=== PATIENT | female | born 1980 | race Caucasian/White ===

== ENCOUNTER → 2020-11-21 18:20 | Outpatient (CLI) | payer BC, SELFPAY ==
--- NOTE | 2020-11-21 18:33 | DI.RAD_ITS ---
Exam(s) XR FOOT RT COMPLETE EXAM: XR FOOT RT COMPLETE CLINICAL HISTORY: Dorsal right foot pain over mid metatarsals. History of stress fractures. TECHNIQUE: 2D digital imaging was performed. COMPARISON: No exams were available for comparison FINDINGS: BONES: No acute fracture is present. No bony destructive lesion is seen. JOINTS: No dislocation present. SOFT TISSUE: Normal. IMPRESSION: 1. Unremarkable radiographs of the right foot. 2. If further imaging is warranted, MRI or nuclear medicine examinations may be considered. DATA REPOSITORY: RADIATION DOSE DELIVERED:
--- NOTE | 2020-11-21 18:54 | DI.VRAD_ITS ---
PROCEDURE INFORMATION: Exam: XR Right Foot Exam date and time: 11/21/2020 6:25 PM Age: 40 years old Clinical indication: Other: Dorsal right foot pain over mid metatarsals. History of stress fxs. TECHNIQUE: Imaging protocol: XR Right foot. Views: 3 or more views. COMPARISON: No relevant prior studies available. FINDINGS: Bones/joints: No fracture. No malalignment. Soft tissues: Normal. IMPRESSION: No acute findings. If additional imaging is clinically indicated, scintigraphy is offered. Dictated and Authenticated by: Humberto Faria MD. Ordering:TAYLOR Valenzuela MD
== END ==
PROVIDERS: Visit Provider Physician Assistant
DX: M79.671 Pain in right foot (principal); Z87.81 Personal history of (healed) traumatic fracture
CPT/HCPCS: 73630

== ENCOUNTER 2021-02-27 11:18 | Outpatient (REF) | payer BC, SELFPAY ==
[2021-02-27 18:41] LABS: HCT 41.8 % (36.0-46.0); HGB 14.5 g/dL (11.2-15.7); MCH 31.1 pg (27.0-33.0); MCHC 34.7 % (32.0-36.0); MCV 89.7 fL (80-95); MPV 9.5 fL (8.0-11.0); Platelet Count 379 10^3/uL (130-400); RBC 4.66 10^6/uL (3.93-5.22); RDW-SD 42.5 fL; WBC 13.43 10^3/uL (4.4-10.8)
[2021-02-27 19:00] LABS: Iron 117 ug/dL (50-170); Total Iron Binding Capacity 318 ug/dL (250-450); Transferrin Sat 37 % (15-50)
[2021-02-27 19:08] LABS: ALT 52 U/L (14-59); AST 21 U/L (15-37); Albumin 4.3 g/dL (3.4-5.0); Alkaline Phosphatase 70 U/L (46-116); Anion Gap 9.7 mmol/L (3-11); BUN 8 mg/dL (7-18); Bilirubin, Total 0.8 mg/dL (0.2-1.0); CO2 27.3 mmol/L (21.0-32.0); CREATININE 0.7 mg/dL (0.55-1.02); Calcium 9.1 mg/dL (8.5-10.1); Calculated LDL 114 mg/dL (<100); Chloride 101 mmol/L (98-107); Cholesterol 187 mg/dL (<200); Ferritin 92 ng/mL (8-252); Glucose 100 mg/dL (74-106); HDL Cholesterol 37 mg/dL (40-60); Potassium 4.1 mmol/L (3.5-5.1); Sodium 138 mmol/L (136-145); TSH (W/Ref FT4) 1.22 uIU/mL (0.36-3.74); Total Protein 7.3 g/dL (6.4-8.2); Triglyceride 181 mg/dL (<150)
[2021-03-02 00:29] LABS: Vitamin D 25 Total 36.5 ng/mL (30-100)
== END 2021-02-27 11:19 | disposition home or self-care (01) ==
LOC: LBN 11:18
PROVIDERS: PCP Student in an Organized Health Care Education/Training Program; Visit Provider Student in an Organized Health Care Education/Training Program
DX: K58.9 Irritable bowel syndrome, unspecified; K90.9 Intestinal malabsorption, unspecified; E55.9 Vitamin D deficiency, unspecified; R53.83 Other fatigue; Z86.2 Personal history of diseases of the blood and blood-forming organs and certain disorders involving the immune mechanism; G25.81 Restless legs syndrome; Z13.220 Encounter for screening for lipoid disorders
CPT/HCPCS: 80053; 80061; 82306; 85027; 82728; 83540; 83550; 84443

== ENCOUNTER 2021-03-26 13:18 | Outpatient (REF) | payer BC, SELFPAY ==
--- NOTE | 2021-03-26 11:00 | PAPFT_PTH ---
PATIENT: Anisha Ruiz LOC: [facility] U#:[id number] AGE/SX: 40/F ROOM: RE03/26/[address]: Irasema Grier DO : 1980 BED: DIS: 03/26/2021 SPEC #: [id number] RECD: 03/26/21 13:24 STATUS: [facility]ARR REQ #: [id number] RAVINDRA: 03/26/21 11:[address]: Irasema Grier DEPT: [facility] Cytology RECD BY: Yaima Ryan ENTERED: 03/26/21 13:25 SP TYPE: PAPFT OTHR DR: Becki Tinsley DO Tissues: 1 - CX/ENDOCX FOR PAP SMEARS Procedures: PAP THIN PREP/[facility] Screening HPV DNA PROBE Comments: [id number]
== END 2021-03-26 13:19 | disposition home or self-care (01) ==
LOC: LBN 13:18
PROVIDERS: PCP Student in an Organized Health Care Education/Training Program; Visit Provider Obstetrics & Gynecology
DX: Z12.4 Encounter for screening for malignant neoplasm of cervix (principal); Z11.51 Encounter for screening for human papillomavirus (HPV)
CPT/HCPCS: 88142; 87624